=== PATIENT | female | born 1985 | race Caucasian/White ===

== ENCOUNTER 2018-04-09 12:59 | Emergency (ER) | payer MEDICAID ==
[2018-04-09 13:25] VITALS: BP 110/76
[2018-04-09 14:04] LABS: Basophils % (Auto) 0.2 % (0.0-1.8); Eosinophils % (Auto) 0.3 % (0.0-4.3); Hematocrit 31.6 % (30.3-42.9); Hemoglobin 10.4 gm/dl (10.1-14.3); Lymphocytes # (Auto) 2.1 K/mm3 (1.2-5.4); Mean Corpuscular HGB Conc 33 % (30-34); Mean Corpuscular Hemoglobin 30 pg (28-32); Mean Corpuscular Volume 90 fl (79-97); Monocytes # (Auto) 0.3 K/mm3 (0.0-0.8); Monocytes % (Auto) 3.5 % (0.0-7.3); Platelet Count 165 K/mm3 (140-440); Red Blood Count 3.49 M/mm3 (3.65-5.03)
[2018-04-09 14:23] LABS: BUN/Creatinine Ratio 10; Blood Urea Nitrogen 6 mg/dL (7-17); Calcium 9.6 mg/dL (8.4-10.2); Hemolysis Index 2
--- NOTE | 2018-04-09 15:33 | Emergency Department Report ---
Minor Respiratory - HPI Chief Complaint: Medical Clearance Stated Complaint: COUGHING BLOOD/SOB Time Seen by Provider: 04/09/18 15:09 Duration: 2 Days Severity: mild Minor Respiratory: Yes Able to Tolerate Fluids, Yes Cough (patient had one episode of coughing that has some bloody sputum. Patient does have some mild shortness of breath for the last several days and still congested.), Yes Sick Contacts, Yes Hemoptysis, Yes Shortness of Breath, No Rhinorrhea, No Sore Throat , No Ear Pain, No Chest Pain, No Fever ED Review of Systems ROS: Stated complaint: COUGHING BLOOD/SOB Other details as noted in HPI Comment: All other systems reviewed and negative ED Past Medical Hx - Past Medical History Previous Medical History?: No - Social History Smoking Status: Never Smoker - Medications Home Medications: Home Medications Medication Instructions Recorded Confirmed Last Taken Type Azithromycin [Zithromax Z-ITZ] 250 mg PO DAILY #6 tablet 04/09/18 Unknown Rx Minor Respiratory Exam - Exam General: Vital signs noted. No distress. Alert and acting appropriately. HEENT: Yes Moist Mucous Membranes, No Pharyngeal Erythema, No Pharyngeal Exudates, No Rhinorrhea, No Conjuctival Injection, No Frontal Tenderness, No Maxillary Tenderness Ear: Neither TM Bulge, Neither TM Erythema, Neither EAC Pain, Neither EAC Discharge Neck: Yes Supple, No Adenopathy Lungs: Yes Good Air Exchange, No Wheezes, No Ronchi, No Stridor, No Cough, No Labored Respirations, No Retractions, No Use of Accessory Muscles, No Other Abnormal Lung Sounds Heart: Yes Regular, No Murmur Abdomen: Yes Normal Bowel Sounds, No Tenderness, No Peritoneal Signs Skin: No Rash, No Edema Neurologic: Alert and oriented, no deficits. Musculoskeletal: Unremarkable. ED Course Vital Signs 04/09/18 13:19 Temperature 98.1 F Pulse Rate 115 H Respiratory 16 Rate Blood Pressure 110/76 O2 Sat by Pulse 100 Oximetry ED Medical Decision Making - Lab Data Result diagrams: 04/09/18 13:52 04/09/18 13:52 - Medical Decision Making Patient most likely has a mild bronchitis and will be started on [facility] Critical care attestation.: If time is entered above; I have spent that time in minutes in the direct care of this critically ill patient, excluding procedure time. ED Disposition Clinical Impression: Acute bronchitis Qualifiers: Bronchitis organism: unspecified organism Qualified Code(s): J20.9 - Acute bronchitis, unspecified Disposition: DC-01 TO HOME OR SELFCARE Is pt being admited?: No Does the pt Need Aspirin: No Condition: Stable Instructions: Acute Bronchitis (ED) Referrals: PRIMARY CARE, [Primary Care Provider] - 3-5 Days Time of Disposition: 15:33
== END 2018-04-09 15:45 | disposition home or self-care (01) ==
LOC: ED 12:59
DX: J20.9 Acute bronchitis, unspecified (principal)
CPT/HCPCS: 36415; 80048; 85025; 99283